=== PATIENT | female | born 2000 | race Caucasian/White ===

== ENCOUNTER 2018-04-19 21:50 | Emergency (ER) | payer OTHER ==
[2018-04-19] MEDS ORDERED: RANITIDINE 50 MG/2 ML VIAL IVP ONE (22:08)
[2018-04-19] MEDS ORDERED: NS 1,000 ML IV ONE (22:08)
[2018-04-19] MEDS ORDERED: methylPREDNISolone SOD SUCC 125 MG/2 ML VIAL IVP ONE (22:08)
[2018-04-19] MEDS ORDERED: EPINEPHrine 1 MG/ML INJ IM ONE (22:08)
--- NOTE | 2018-04-19 22:12 | EDPHY ---
H & P Time Seen by Provider: 04/19/18 22:04 HPI/ROS: CHIEF COMPLAINT: Allergic reaction to peanuts HISTORY OF PRESENT ILLNESS: 17-year-old female with known peanut allergy accidentally ate a peanut containing cookie 20 min prior to arrival, now complaining itching, erythema, sensation of glossal enlargement. No wheezing. No abdominal pain. No nausea or vomiting. No headache. PRIMARY CARE PROVIDER: REVIEW OF SYSTEMS: 10 systems reviewed and negative with the exception of the elements mentioned in the history of present illness PAST MEDICAL & SURGICAL HISTORY: known peanut allergy SOCIAL HISTORY: Student PHYSICAL EXAM (Prior to examination, patient consented to physical exam, hands were washed and my usual and customary physical exam procedures followed) 1) GENERAL: Well-developed, well-nourished, alert and oriented. Appears to be in no acute distress. 2) HEAD: Normocephalic, atraumatic 3) HEENT: Pupils equal, round, reactive to light bilaterally. Sclera anicteric. Voice slightly blunted. No trismus no drooling. No obvious tonsillar glossal enlargement 4) NECK: Full range of motion, no meningeal signs. 5) LUNGS: Clear auscultation bilaterally, no wheezes, no rhonchi, no retractions. 6) HEART: Regular rate and rhythm, no murmur, no heave, no gallop. 7) ABDOMEN: No guarding, no rebound, no focal tenderness, negative McBurney's, negative Sanford's, negative Rovsing's, negative peritoneal sign, 8) MUSCULOSKELETAL: Moving all extremities, no focal areas of tenderness, no obvious trauma. No peripheral edema or discoloration. 9) BACK: No CVA tenderness, no midline vertebral tenderness, no fluctuance, no step-off, no obvious trauma, no visual or palpable abnormality. 10) SKIN: Diffuse erythema noted 11) Psychiatric: Patient is oriented X 3, there is no agitation. DIFFERENTIAL DIAGNOSIS: In no particular order including but not limited to anaphylaxis, anaphylactoid reaction, urticaria Smoking Status: Never smoked Constitutional: Initial Vital Signs Temperature (C) 36.7 C 04/19/18 21:57 Heart Rate 80 04/19/18 21:57 Respiratory Rate 18 04/19/18 21:57 Blood Pressure 123/60 H 04/19/18 21:57 O2 Sat (%) 97 04/19/18 21:57 O2 Delivery Mode Room Air Allergies/Adverse Reactions: peanut Allergy (Severe, Verified 04/19/18 21:56) Home Medications: Medication Instructions Recorded EPINEPHrine [Epipen 0.3 MG] 0.3 mg IM ONCE #2 syr 04/19/18 Epinephrine 04/19/18 MDM/Departure - MDM Medications Given: Discontinued Medications Diphenhydramine HCl (Benadryl Injection) 50 mg IVP EDNOW ONE Stop: 04/19/18 22:09 Last Admin: 04/19/18 22:19 Dose: 50 mg Epinephrine HCl (Epinephrine) 0.3 mg IM EDNOW ONE Stop: 04/19/18 22:09 Last Admin: 04/19/18 22:19 Dose: 0.3 mg Famotidine (Pepcid) 20 mg IVP EDNOW ONE Stop: 04/19/18 22:23 Last Admin: 04/19/18 22:23 Dose: 20 mg Sodium Chloride (Ns) 1,000 mls @ 0 mls/hr IV ONCE ONE; Wide Open PRN Reason: Protocol Stop: 04/19/18 22:09 Last Admin: 04/19/18 22:19 Dose: 1,000 mls Methylprednisolone Sodium Succinate (Solu-Medrol) 125 mg IVP EDNOW ONE Stop: 04/19/18 22:09 Last Admin: 04/19/18 22:19 Dose: 125 mg Ranitidine HCl (Zantac) 50 mg IVP EDNOW ONE Stop: 04/19/18 22:09 Last Admin: 04/19/18 22:25 Dose: Not Given ED Course/Re-evaluation: 10:09 p.m. will administer epinephrine, H1 H2 blockers, Solu-Medrol, IV fluids, observe patient for period of time. No emergent airway compromise at this time. Care of patient under supervision of secondary supervising physician Dr Bond with whom I discussed case. 10:50 p.m.: Re-evaluation after medications. Feeling improvement. Erythema resolved. 11:19 p.m.: Re-evaluation, feeling at baseline, symptoms have resolved. Lungs clear bilaterally. Voice has normalized according to her friend with her. Erythema has resolved. I think the patient can be discharged. She [place]. Discussed possibility of biphasic response. Recommend avoiding allergens in the future. Recommended using her EpiPen for sign of allergic reaction. She feels comfortable being discharged. All questions and concerns addressed by myself. - Depart Disposition: Home, Routine, Self-Care Clinical Impression: Peanut allergy Allergic reaction Qualifiers: Encounter type: initial encounter Qualified Code(s): T78.40XA - Allergy, unspecified, initial encounter Condition: Good Instructions: Peanut Allergy (ED) Additional Instructions: Avoid peanut containing products in the future. Use your EpiPen for sign of allergic reaction and then seek immediate medical attention. Prescriptions: EPINEPHrine [Epipen 0.3 MG] 0.3 mg IM ONCE #2 syr Referrals: Carolina Duran MD [[facility] [place] Primary Care Provider] - 5-7 days, call for appt.
[2018-04-19] MEDS ORDERED: FAMOTIDINE 20 MG/2 ML SDV IVP ONE (22:22)
[2018-04-19 23:29] VITALS: BP 108/63
== END 2018-04-19 23:26 | disposition home or self-care (01) ==
DX: T78.49XA Other allergy, initial encounter (principal)
CPT/HCPCS: 96374